=== PATIENT | female | born 1980 | race African-American/Black ===

== ENCOUNTER 2022-05-19 08:52 | Emergency (ER) | payer MEDICAID ==
[~2022-05-19] VITALS: Ht 175.3 cm; Wt 94.3 kg
[2022-05-19 09:16] VITALS: BP 148/87
== END 2022-05-19 09:31 | disposition left against medical advice (07) ==
LOC: ER 08:52
DX: R05.9 Cough, unspecified (principal); R09.89 Other specified symptoms and signs involving the circulatory and respiratory systems; R53.1 Weakness; Z53.21 Procedure and treatment not carried out due to patient leaving prior to being seen by health care provider

== ENCOUNTER 2022-06-17 19:52 | Emergency (ER) | payer MEDICAID ==
[~2022-06-17] VITALS: Ht 175.3 cm; Wt 91.0 kg
[2022-06-17] MEDS ORDERED: methylPREDNISolone SOD SUCC 125 MG/2 ML VL IM ONE (20:15)
[2022-06-17] MEDS ORDERED: KETOROLAC TROMETH 30 MG/ML 1ML VIAL IM ONE (20:15)
[2022-06-17] MEDS ORDERED: HYD25TP PR (20:18)
[2022-06-17] MEDS ORDERED: HYD25RS PR (20:18)
[2022-06-17 20:40] VITALS: BP 166/105
== END 2022-06-17 20:41 | disposition home or self-care (01) ==
LOC: ER 19:56
DX: K64.4 Residual hemorrhoidal skin tags (principal); I10 Essential (primary) hypertension
CPT/HCPCS: 96372; 99284; J1885; J2930

== ENCOUNTER 2022-06-25 13:48 | Emergency (ER) | payer MEDICAID ==
[~2022-06-25] VITALS: Ht 175.3 cm; Wt 92.7 kg
[~2022-06-25 13:48] MED LIST: HYD25RS PR; HYD25TP PR
[2022-06-25 14:54] LABS: Basophils # (auto) 0 10 ^3/uL (0-0.2); Basophils % (auto) 0.2 % (0.0-2.0); Eosinophils # (auto) 0.1 10 ^3/uL (0-0.8); Hematocrit 41.6 % (36.0-46.0); Hemoglobin 14.4 g/dL (12.2-16.2); Lymphocytes % (auto) 22.2 % (10.0-50.0); Mean Corpuscular Hgb Conc. 34.6 g/dL (32.0-36.0); Mean Corpuscular Volume 95.3 fL (80.0-100.0); Monocytes # (auto) 0.5 10 ^3/uL (0-1.3); Monocytes % (auto) 5.2 % (0.0-12.0); Neutrophils # (auto) 6.4 10 ^3/uL (1.6-8.6); Neutrophils % (auto) 71.4 % (37.0-80.0); Nucleated Red Blood Cells % 0.1 %; Red Blood Cells 4.36 10^6/uL (4.0-5.20); Red Cell Distribution Width 13.8 % (11.8-14.3)
[2022-06-25 15:08] LABS: Calcium 8.9 mg/dL (8.5-10.1); Potassium 3.5 mmol/L (3.5-5.1)
[2022-06-25 15:11] LABS: BUN/Creatinine Ratio 13.8; Bilirubin, Total 0.2 mg/dL (0.2-1.0); Total Protein 7.3 g/dL (6.4-8.2)
[2022-06-25 18:03] VITALS: BP 173/110
[2022-06-25] MEDS ORDERED: NIFE1POW XX (18:04)
== END 2022-06-25 18:17 | disposition home or self-care (01) ==
LOC: EDBD 13:48 → ER 13:48
DX: K64.8 Other hemorrhoids (principal); I10 Essential (primary) hypertension; Z79.899 Other long term (current) drug therapy
CPT/HCPCS: 36415; 80053; 85025

== ENCOUNTER 2022-06-27 10:51 | Emergency (ER) | payer MEDICAID ==
[~2022-06-27] VITALS: Ht 175.3 cm; Wt 94.0 kg
[~2022-06-27 10:51] MED LIST changes: +NIFE1POW XX
[2022-06-27 11:06] VITALS: BP 148/96
[2022-06-27] MEDS ORDERED: ONDANSETRON HCL 4 MG/2 ML VIAL IV ONE (11:30)
[2022-06-27] MEDS ORDERED: MORPHINE SULFATE 4 MG/ML SYR/VIAL IV ONE (11:30)
[2022-06-27 11:52] LABS: Basophils # (auto) 0 10 ^3/uL (0-0.2); Basophils % (auto) 0.4 % (0.0-2.0); Eosinophils # (auto) 0.1 10 ^3/uL (0-0.8); Hematocrit 42.6 % (36.0-46.0); Hemoglobin 14.7 g/dL (12.2-16.2); Lymphocytes # (auto) 1.8 10 ^3/uL (0.4-5.4); Lymphocytes % (auto) 23.1 % (10.0-50.0); Mean Corpuscular Hemoglobin 32.8 pg (28.0-32.0); Mean Corpuscular Hgb Conc. 34.5 g/dL (32.0-36.0); Mean Corpuscular Volume 94.8 fL (80.0-100.0); Monocytes # (auto) 0.5 10 ^3/uL (0-1.3); Monocytes % (auto) 5.9 % (0.0-12.0); Neutrophils # (auto) 5.4 10 ^3/uL (1.6-8.6); Neutrophils % (auto) 69.6 % (37.0-80.0); Red Blood Cells 4.49 10^6/uL (4.0-5.20); Red Cell Distribution Width 14.3 % (11.8-14.3); White Blood Cell 7.8 10^3/uL (4.4-10.8)
[2022-06-27 12:01] LABS: Potassium 3.9 mmol/L (3.5-5.1)
[2022-06-27 12:06] LABS: Albumin 4.3 g/dL (3.4-5.0); BUN/Creatinine Ratio 13.1; Bilirubin, Total 0.5 mg/dL (0.2-1.0); Calcium 9.2 mg/dL (8.5-10.1); Total Protein 7.2 g/dL (6.4-8.2)
[2022-06-27 12:08] LABS: INR 0.97 (0.9-1.15); Partial Thromboplastin Time 26.2 sec (24.6-33.4)
[2022-06-27] MEDS ORDERED: IOHEXOL 350 MG/ML 100ML IJ ONE (15:26)
== END 2022-06-27 20:53 | disposition left against medical advice (07) ==
LOC: ER 10:51
DX: K64.4 Residual hemorrhoidal skin tags (principal); E11.9 Type 2 diabetes mellitus without complications; I10 Essential (primary) hypertension; F17.210 Nicotine dependence, cigarettes, uncomplicated
CPT/HCPCS: 36415; 74177; 80053; 85025; 85610; 85730; 99285; Q9967

== ENCOUNTER 2023-02-01 09:49 | Emergency (ER) | payer MEDICAID ==
[~2023-02-01] VITALS: Ht 175.3 cm; Wt 95.5 kg
[2023-02-01] MEDS ORDERED: CIPR0.3S67 OP (11:51)
[2023-02-01 11:53] VITALS: BP 149/89; PULSE 74; RESP 18; TEMP 98; O2SAT 100
== END 2023-02-01 11:55 | disposition home or self-care (01) ==
LOC: ER 09:49
DX: H11.33 Conjunctival hemorrhage, bilateral (principal); E11.9 Type 2 diabetes mellitus without complications; I10 Essential (primary) hypertension; F17.210 Nicotine dependence, cigarettes, uncomplicated; F12.10 Cannabis abuse, uncomplicated